=== PATIENT | female | born 1995 | race Caucasian/White ===

== ENCOUNTER 2020-10-12 16:43 | Inpatient (IN) | payer BC, OTHER ==
[~2020-10-12] VITALS: Ht 160 cm; Wt 112.0 kg
[2020-10-12 17:47] LABS: HEMOGLOBIN 12.4 gm/dl (12.3-15.3); RED BLOOD COUNT 4.15 M/UL (4.00-5.10); WHITE BLOOD COUNT 13.5 K/UL (4.5-11.0)
[2020-10-12] MEDS ORDERED: GLUCOPHAGE 500500 MG PO (18:18)
[2020-10-12] MEDS ORDERED: PRENATAL VITAM1 EAC3 PO (18:18)
[2020-10-14 07:32] LABS: HEMOGLOBIN 9.8 gm/dl (12.3-15.3)
[2020-10-15] MEDS ORDERED: FOLIVANE-PLUS1 EACH PO (12:04)
[2020-10-15] MEDS ORDERED: COLACE100 MG PO (12:04)
[2020-10-15] MEDS ORDERED: ANAPROX DS550 MG PO (12:04)
== END 2020-10-15 16:30 | disposition home or self-care (01) | DRG 807 ==
LOC: GENOP 16:43 → OB 16:54
PROVIDERS: Obstetrics & Gynecology; ADMIT Obstetrics & Gynecology
PROC: 0U7C7ZZ Dilation of Cervix, Via Natural or Artificial Opening (ICD-10-PCS; 2020-10-12)
PROC: 10E0XZZ Delivery of Products of Conception, External Approach (ICD-10-PCS; principal; 2020-10-13)
PROC: 3E033VJ Introduction of Other Hormone into Peripheral Vein, Percutaneous Approach (ICD-10-PCS; 2020-10-13)
PROC: 10907ZC Drainage of Amniotic Fluid, Therapeutic from Products of Conception, Via Natural or Artificial Opening (ICD-10-PCS; 2020-10-13)
PROC: 0W8NXZZ Division of Female Perineum, External Approach (ICD-10-PCS; 2020-10-13)
DX: O99.284 Endocrine, nutritional and metabolic diseases complicating childbirth (principal); Z37.0 Single live birth; E28.2 Polycystic ovarian syndrome; Z3A.39 39 weeks gestation of pregnancy; Z28.09 Immunization not carried out because of other contraindication
CPT/HCPCS: 51702; 81001; 82962; 85014; 85018; 85025; J2210; J2405; J2590; J7120; U0002